=== PATIENT | male | born 1935 | race Caucasian/White ===

== ENCOUNTER 2022-10-26 15:50 | Emergency (ER) | payer OTHER ==
[~2022-10-26] VITALS: Ht 180.3 cm; Wt 86.2 kg
--- NOTE | 2022-10-26 16:00 | NUR ---
BIB RA 860 FROM HOME C/O COUGHING FOR A WEEK THAT HAS PROGRESSIVELY GOTTEN WORSE THE PAST 3 DAYS. PLACED IN BED, AAOX4, BREATHING EVEN AND UNLABORED SATURATING AT 98%RA
--- NOTE | 2022-10-26 16:25 | NUR ---
SWAB FOR COVID19 AND RAPID INFLUENZA SENT TO LAB
--- NOTE | 2022-10-26 16:26 | NUR ---
FRUIT HARVESTER MACHINE OPERATOR AT BEDSIDE
[2022-10-26] MEDS ORDERED: ACETAMINOPHEN 325 MG TABLET ONE (16:27)
[2022-10-26] MEDS ORDERED: ACETAMINOPHEN 325 MG TABLET PO ONE (16:30)
[2022-10-26] MEDS ORDERED: BENZONATATE 100 MG CAPSULE PO ONE (16:41)
--- NOTE | 2022-10-26 16:43 | NUR ---
[facility]- [phone]
[2022-10-26 16:47] LABS: BASOPHILS % (AUTO) 0.2 % (0.0-2.0); EOSINOPHILS % (AUTO) 1.7 % (0.0-6.0); HEMATOCRIT 40 % (39-51); HEMOGLOBIN 12.8 g/dL (13.5-17.5); LYMPHOCYTES # (AUTO) 0.7 K/uL (0.8-4.8); LYMPHOCYTES % (AUTO) 16.6 % (20.0-44.0); MEAN CORPUSCULAR HGB CONC 32 g/dl (31.0-36.0); MEAN CORPUSCULAR VOLUME 93 fL (80-96); MONOCYTES # (AUTO) 0.7 K/uL (0.1-1.30); MONOCYTES % (AUTO) 16.9 % (2.0-12.0); NEUTROPHILS # (AUTO) 2.6 K/uL (1.8-8.9); NEUTROPHILS % (AUTO) 64.6 % (43.0-81.0); PLATELET COUNT (AUTO) 231 K/uL (150-450); RED BLOOD CELL COUNT(AUTO) 4.24 MIL/uL (4.5-6.0)
[2022-10-26] MEDS ORDERED: BENZONATATE 100 MG CAPSULE PO PRN (17:00)
[2022-10-26 17:17] LABS: ALBUMIN 3.2 g/dL (3.4-5.0); BILIRUBIN,TOTAL 0.4 mg/dL (0.2-1.0); CALCIUM, SERUM 8.4 mg/dL (8.5-10.1); CREATININE 1.1 mg/dL (0.6-1.3); TOTAL PROTEIN, SERUM 6.6 g/dL (6.4-8.2)
[2022-10-26 18:04] LABS: BAND % (MANUAL) 3 % (0.0-5.0); EOSINOPHILS % (MANUAL) 2 % (0-4); LYMPHOCYTES % (MANUAL) 18 % (16-48); MONOCYTES % (MANUAL) 12 % (0-11.0); NEUTROPHILS % (MANUAL) 65 (42-76)
[2022-10-26] MEDS ORDERED: AMOX500T2 PO (18:17)
[2022-10-26] MEDS ORDERED: BENZ-13 PO (18:17)
--- NOTE | 2022-10-26 18:44 | NUR ---
Patient discharged to home in stable condition. Written and verbal after care instructions given. SON verbalizes understanding of instruction.
[2022-10-26 18:45] VITALS: BP 130/60
== END 2022-10-26 18:45 | disposition home or self-care (01) ==
LOC: ER 15:55
DX: J18.9 Pneumonia, unspecified organism (principal); Z20.822 Contact with and (suspected) exposure to COVID-19; D72.819 Decreased white blood cell count, unspecified; D64.9 Anemia, unspecified
CPT/HCPCS: 36415; 71045-TC; 80053-TC; 85025-TC; C9803

== ENCOUNTER 2022-11-18 19:50 | Inpatient (IN) | payer OTHER ==
[~2022-11-18] VITALS: Ht 177.8 cm; Wt 90.3 kg
[~2022-11-18 19:50] MED LIST: AMOX500T2 PO; BENZ-13 PO
--- NOTE | 2022-11-18 20:11 | NUR ---
BIBRA99 FROM HOME C/O SYNCOPAL EPISAODE @1914 -TRAUMA. - BLOOD THINNERS -LOC. PT A/OX4. TOLERATING R/A WELL WITH NO RESP DISTRESS. CONNECTED PT TO POX AND MONITOR.
--- NOTE | 2022-11-18 20:17 | NUR ---
ACCUCHECK BS 231
--- NOTE | 2022-11-18 20:17 | NUR ---
COVID ANTIGEN SWAB COLLECTED AND SENT TO LAB
--- NOTE | 2022-11-18 20:17 | NUR ---
TOOL DESIGN DRAFTER AT PT'S BEDSIDE
[2022-11-18] MEDS ORDERED: IV NS 0.9% 500 ML BAG IV ONE (20:30)
[2022-11-18 20:50] LABS: BASOPHILS % (AUTO) 0.2 % (0.0-2.0); EOSINOPHILS % (AUTO) 1.1 % (0.0-6.0); HEMATOCRIT 36 % (39-51); HEMOGLOBIN 11.7 g/dL (13.5-17.5); LYMPHOCYTES # (AUTO) 1.4 K/uL (0.8-4.8); LYMPHOCYTES % (AUTO) 19.4 % (20.0-44.0); MEAN CORPUSCULAR HGB CONC 33 g/dl (31.0-36.0); MEAN CORPUSCULAR VOLUME 93 fL (80-96); MONOCYTES # (AUTO) 0.8 K/uL (0.1-1.30); NEUTROPHILS # (AUTO) 4.9 K/uL (1.8-8.9); NEUTROPHILS % (AUTO) 68.3 % (43.0-81.0); PLATELET COUNT (AUTO) 194 K/uL (150-450); RED BLOOD CELL COUNT(AUTO) 3.86 MIL/uL (4.5-6.0); WHITE BLOOD COUNT (AUTO) 7.2 K/uL (4.3-11.0)
[2022-11-18] MEDS ORDERED: ONDANSETRON HCL/PF 4 MG/2 ML VIAL ONE (20:55)
[2022-11-18] MEDS ORDERED: MORPHINE SULFATE INJ 4 MG/ML DISP.SYRIN ONE (20:56)
[2022-11-18] MEDS ORDERED: ONDANSETRON HCL/PF 4 MG/2 ML VIAL IV ONE (21:00)
[2022-11-18] MEDS ORDERED: MORPHINE SULFATE INJ 2 MG/ML DISP.SYRIN IV ONE (21:00)
--- NOTE | 2022-11-18 21:00 | NUR ---
PT TAKEN TO CT VIA GABRIELA
[2022-11-18 21:12] LABS: ALANINE AMINOTRANSFERASE 75 U/L (12-78); ALBUMIN 2.5 g/dL (3.4-5.0); ALKALINE PHOSPHATASE 89 U/L (46-116); ASPARTATE AMINOTRANSFERASE 38 U/L (15-37); BILIRUBIN,DIRECT 0.1 mg/dL (0.0-0.2); BILIRUBIN,TOTAL 0.2 mg/dL (0.2-1.0); CARBON DIOXIDE 25 mmol/L (21-32); CHLORIDE 108 mmol/L (98-107); CREATININE 1.1 mg/dL (0.6-1.3); GLUCOSE 226 mg/dL (74-106); POTASSIUM 3.6 mmol/L (3.5-5.1); SODIUM SERUM 140 mmol/L (136-145); TOTAL PROTEIN, SERUM 5.6 g/dL (6.4-8.2); UREA NITROGEN, BLOOD 16 mg/dL (7-18)
--- NOTE | 2022-11-18 21:44 | NUR ---
PT RETURNED TO ER BED [address]
--- NOTE | 2022-11-18 23:23 | NUR ---
LACTIC ACID 3.0, AWARE
--- NOTE | 2022-11-18 23:24 | NUR ---
DR PRASHANTH HOLLAND PER DR FERRO
[2022-11-18] MEDS ORDERED: HALOPERIDOL LACTATE INJ 5 MG/ML VIAL IM ONE (23:30)
[2022-11-19] MEDS ORDERED: AZITHROMYCIN 500 MG in IV D5W 250 ML IV ONE ×2
[2022-11-19] MEDS ORDERED: hydrALAZINE HCL 10 MG TABLET PO PRN
[2022-11-19] MEDS ORDERED: DEXTROSE 50%-WATER 50 ML DISP.SYRIN IV PRN
[2022-11-19] MEDS ORDERED: IV NS 0.9% 1,000 ML BAG IV ONE
--- NOTE | 2022-11-19 00:14 | NUR ---
US TECH AT PT'S BEDSIDE
--- NOTE | 2022-11-19 01:25 | NUR ---
REPORT GIVEN TO NICANOR BullW RN FOR JAS
[2022-11-19] MEDS ORDERED: CEFTRIAXONE 1GM BAG (ER ONLY) 50 ML IV ONE ×2 (01:27)
[2022-11-19] MEDS ORDERED: HALOPERIDOL LACTATE INJ 5 MG/ML VIAL ONE (01:27)
[2022-11-19] MEDS ORDERED: AZITHROMYCIN 500 MG VIAL ONE (01:27)
--- NOTE | 2022-11-19 01:50 | NUR ---
TABLE ASSEMBLER AT PT'S BEDSIDE
--- NOTE | 2022-11-19 02:23 | NUR ---
PT TRANSFERRED TO [facility]- VIA ACLS PROTOCOL. VSS. PT TOLERATED TRANSFER WELL. ENDORSED TO CARMELO LEGGETT TO FINISH AZITHROMYCIN INFUSION.
--- NOTE | 2022-11-19 02:30 | NUR ---
RN NOTE; RECEIVED PT FROM ER IN RM 324-1 WITH GABRIELA AWAKED AOX1-2 CONFUSED,LALITHA WELL ON RM AIR SATTING 98%,NO SIGN SOB/DISTRESS NOTED,NO SIGN OF PAIN/DISCOMFORT AT THIS TIME,IV ACCESS LT WRIST 20G,PATENT AND INTACT,KEPT PT COMFORTABLE,CLEANED AT TALL TIME,SAFETY MEASURE IN PLACE,CALL LIGHT WITHIN REACH,WILL CONTINUE TO MONITOR.
--- NOTE | 2022-11-19 02:31 | NUR ---
UPDATED SELVIN (DAUGHTER) REGARDING PT'S ADMISSION CELL PHONE [phone]
[2022-11-19] MEDS: ACETAMINOPHEN 325 MG TABLET PO PRN ×2 (04:36→21:28)
[2022-11-19] MEDS: ZOLPIDEM TARTRATE 5 MG TABLET PO PRN (04:36)
[2022-11-19] MEDS: *INSULIN REGULAR(HUMULIN R)HUM 100 UNIT/ML VIAL SQ PRN (06:17)
--- NOTE | 2022-11-19 06:37 | NUR ---
RN CLOSING NOTE; PATIENT IN BED AOX1-2 CONFUSED,TRYING TO GET OUT FROM BED,AGITATED,YELLING,EPISODE OF CRYING,RESTRAIN WAS ORDER,DOC Geovanni ALFORDWAS INFORM,NO RESPONCE YET,PT REMAINED STABLE V/S WNL,NO SIGN SOB/DISTRESS NOTED,NO SIGN OF PAIN/DISCOMFORT DURING SHIFT,IV SITE L WRIST PATENT AND INTACT,SAFETY MEASURED IN PLACE,CALL LIGHT WITHIN REACH,WILL ENDORSED TO NEXT SHIFT,
--- NOTE | 2022-11-19 06:58 | NUR ---
RN NOTE; PT WAS CONFUSED,TRYING TO GET OUT FROM BED,PULLING IV,AGITATED,TEXTED DOC,Geovanni ESTRADAWTIH A NEW ORDER.HEPARIN 5000 U SQ BID,ZYPREXA 5MG PRN.
[2022-11-19 07:35] LABS: THYROID STIMULATING HORMONE 2.661 uIU/mL (0.358-3.74)
[2022-11-19] MEDS: BLOOD SUGAR DIAGNOSTIC 1 EACH STRIP VI SCH ×4 (07:36→21:49)
[2022-11-19 08:00] VITALS: BP 128/70
--- NOTE | 2022-11-19 08:00 | NUR ---
RN OPENING NOTE PATIENT IN BED AOX1-2 CONFUSED,TRYING TO GET OUT FROM BED, AGITATED AND YELLING. PT BREATHING EVEN AND NON LABORED. NO SIGN SOB/DISTRESS NOTED AT THIS TIME. NO SIGN OF PAIN/DISCOMFORT. IV ACCESS SITE L WRIST #20G, PATENT AND INTACT. BILATERAL WRIST RESTRAINT NOTED. SAFETY PRECAUTIONS IN PLACE: BED LOCKED AND IN LOW POSITION, SIDE RAILS UP X4, CALL LIGHT WITHIN REACH. WILL CONTINUE TO MONITOR.
[2022-11-19] MEDS: OLANZAPINE 5 MG TABLET PO PRN ×2 (08:09→17:15)
[2022-11-19] MEDS ORDERED: TAMS-12 PO (08:28)
[2022-11-19] MEDS ORDERED: METO25TA20 PO (08:28)
[2022-11-19] MEDS ORDERED: ESCI10TA PO (08:28)
[2022-11-19] MEDS ORDERED: INSU100I4 SQ (08:28)
[2022-11-19] MEDS ORDERED: SITA100T PO (08:28)
[2022-11-19] MEDS ORDERED: OMEP40CA21 PO (08:28)
[2022-11-19] MEDS ORDERED: LISI20TA30 PO (08:28)
[2022-11-19] MEDS ORDERED: ATOR20TA PO (08:28)
[2022-11-19] MEDS ORDERED: LEVE500T20 PO (08:28)
[2022-11-19] MEDS ORDERED: METFORMIN 500 MG TABLET PO SCH (09:00)
[2022-11-19] MEDS: ESCITALOPRAM OXALATE (10 MG) 10 MG TABLET PO SCH (09:26)
[2022-11-19] MEDS: LINAGLIPTIN 5 MG TABLET PO SCH (09:26)
[2022-11-19] MEDS: ASPIRIN EC 81 MG TABLET.DR PO SCH (09:26)
[2022-11-19] MEDS: LISINOPRIL (20MG) 20 MG TABLET PO SCH (09:27)
[2022-11-19] MEDS: LEVETIRACETAM (250 MG) 250 MG TABLET PO SCH ×2 (09:27→21:24)
[2022-11-19] MEDS: HEPARIN SODIUM, PORCINE 5000 UNITS/1 ML VIAL SQ SCH ×2 (09:29→16:36)
--- NOTE | 2022-11-19 11:50 | NUR ---
RN NOTE PT TRIED TO CLIMB OUT OF BED, SCREAMING, DISRUPTIVE, AND COMBATIVE. DR ALFORD NOTIFIED. ORDERED GEODON 20 MG, ONCE. WILL ADMINISTER. WILL CONTINUE TO MONITOR PATIENT.
[2022-11-19] MEDS ORDERED: ZIPRASIDONE MESYLATE 20 MG/VIAL VIAL IM ONE (12:00)
[2022-11-19 12:20] VITALS: BP 124/61
[2022-11-19] MEDS: INSULIN REGULAR, HUMAN 100 UNIT/ML 3 ML VIAL SQ PRN ×2 (12:23→16:51)
[2022-11-19 16:00] VITALS: BP 131/77
--- NOTE | 2022-11-19 18:50 | NUR ---
RN CLOSING NOTE PATIENT IN BED AOX1-2 CONFUSED, TRYING TO GET OUT FROM BED,AGITATED,YELLING, EPISODE OF CRYING. HIS SON BY BEDSIDE. NOTIFIED FAMILY TO BRING EYE DROP. NO SIGN SOB/DISTRESS NOTED. NO SIGN OF PAIN/DISCOMFORT DURING SHIFT,IV SITE L WRIST PATENT AND INTACT. BILATERAL SOFT WRIST RESTRAINT IN PLACE. SAFETY MEASURES IN PLACE. KEPT BED IN LOCKED AND IN LOW POSITION. SIDE RAILS UP X4. ADVISED TO USE THE CALL LIGHT WHEN IN NEED OF ASSISTANCE. REPOSITIONED PATIENT Q2H. ALL NURSING NEEDS ATTENDED. WILL ENDORSE TO INCOMING SHIFT FOR JAS.
--- NOTE | 2022-11-19 19:00 | NUR ---
RN OPENING NOTES PT IS AWAKE. A/O X 1, CONFUSED AND RESTLESS. PT IN RA, TOLERATING WELL, BREATHING EVEN AND UNLABORED @ THIS TIME. PT IV ACCESS PRESENT @ LEFT WRIST #20G SL, PATENT, INTACT AND FLUSHES WELL, WITH NO S/S OF INFILTRATION @ SITE NOTED. SAFETY MEASURES IN PLACE, BED AT ITS LOWEST AND LOCKED POSITION, SIDE RAILS X 3, BEDSIDE TABLE AND CALL LIGHT IS EASY REACH. BED ALARM IS ON. WILL CONTIINUE TO MONITOR PATIENT ACCORDINGLY.
[2022-11-19 20:00] VITALS: BP 127/68
[2022-11-19] MEDS: ATORVASTATIN 10 MG TABLET PO SCH (21:25)
[2022-11-19] MEDS: TAMSULOSIN 0.4 MG CAP.SR.24H PO SCH (21:26)
[2022-11-20] VITALS: BP 128/71
[2022-11-20] MEDS ORDERED: CEFTRIAXONE 1 G in IV D5W 50 ML IV SCH ×2
[2022-11-20] MEDS: AZITHROMYCIN 500 MG in IV D5W 250 ML IV SCH ×2 (00:37→23:05)
[2022-11-20] MEDS: OLANZAPINE 5 MG TABLET PO PRN ×4 (01:28→21:04)
[2022-11-20] MEDS: CEFTRIAXONE 1 G in IV D5W 50 ML IV SCH (01:32)
--- NOTE | 2022-11-20 03:24 | NUR ---
PATIENT REMOVED IV LINE ON HIS LEFT WRIST. INSERTED NEW IV LINE ON LEFT FOREARM #20G SALINE LOCK.
[2022-11-20] MEDS: ACETAMINOPHEN 325 MG TABLET PO PRN ×3 (03:56→22:08)
[2022-11-20 04:00] VITALS: BP 135/78
--- NOTE | 2022-11-20 06:22 | NUR ---
RN CLOSING NOTES PT IS AWAKE, A/O X 1, CONFUSED AND RESTLESS. PT IN RA, TOLERATING WELL, BREATHING EVEN AND UNLABORED @ THIS TIME. PT IV ACCESS PRESENT @ LEFT FORARM #20G SL, PATENT, INTACT AND FLUSHES WELL, WITH NO S/S OF INFILTRATION @ SITE NOTED. PT ON TELE MONITOR WITH CURRENT READING OF SINUS TACHY WITH PVC AND BBB , HR 116. MEDICATION ADMINISTERED PER MD'S ORDER. SAFETY MEASURES IN PLACE, BED AT ITS LOWEST AND LOCKED POSITION, SIDE RAILS X 3, BEDSIDE TABLE AND CALL LIGHT IS EASY REACH. BED ALARM IS ON. WILL CONTIINUE TO MONITOR PATIENT ACCORDINGLY.
[2022-11-20] MEDS: PANTOPRAZOLE 40 MG TABLET.DR PO SCH (06:43)
[2022-11-20] MEDS: BLOOD SUGAR DIAGNOSTIC 1 EACH STRIP VI SCH ×4 (06:44→22:19)
--- NOTE | 2022-11-20 07:25 | NUR ---
SENIOR MARKET INTELLIGENCE CONSULTANT OPENING NOTES PT IS AWAKE. A/O X 1, CONFUSED AND RESTLESS. ON ROOM AIR TOLERATING WELL, BREATHING EVEN AND UNLABORED @ THIS TIME. PT IV ACCESS PRESENT @ LEFT UPPER ARM #20G SL, PATENT, INTACT AND FLUSHES WELL, WITH NO S/S OF INFILTRATION @ SITE NOTED. SAFETY MEASURES IN PLACE, BED AT ITS LOWEST AND LOCKED POSITION, SIDE RAILS X 3, BEDSIDE TABLE AND CALL LIGHT IS EASY REACH. BED ALARM IS ON. WILL CONTINUE TO MONITOR PATIENT ACCORDINGLY.
[2022-11-20] MEDS: ESCITALOPRAM OXALATE (10 MG) 10 MG TABLET PO SCH (08:29)
[2022-11-20] MEDS: ASPIRIN EC 81 MG TABLET.DR PO SCH (08:29)
[2022-11-20] MEDS: LINAGLIPTIN 5 MG TABLET PO SCH (08:29)
[2022-11-20] MEDS: LEVETIRACETAM (250 MG) 250 MG TABLET PO SCH ×2 (08:29→21:05)
[2022-11-20] MEDS: QUETIAPINE FUMARATE 25 MG TABLET PO SCH ×2 (08:30→17:34)
[2022-11-20] MEDS: LISINOPRIL (20MG) 20 MG TABLET PO SCH ×2 (08:36→08:47)
[2022-11-20] MEDS: HEPARIN SODIUM, PORCINE 5000 UNITS/1 ML VIAL SQ SCH ×2 (08:37→17:35)
--- NOTE | 2022-11-20 10:45 | NUR ---
WOUND CARE CONSULT: PT PRESENTS WITH LARGE AREA OF DISCOLORATION TO RT HIP, RT LATERAL KNEE AND SKIN TEAR TO RT ELBOW, ALL PRESENT ON ADMISSION. RECOMMENDATIONS MADE FOR SKIN PROTECTION AND WOUND CARE. DISCUSSED WITH NURSING STAFF. DEFER TO PMD FOR HIP DISCOLORATION. MD IN AGREEMENT WITH PLAN OF CARE.
[2022-11-20] MEDS ORDERED: Z GUARD REMEDY 4 OZ OINT TP PRN (11:00)
[2022-11-20] MEDS: Z GUARD REMEDY 4 OZ OINT TP SCH (12:56)
[2022-11-20] MEDS: INSULIN REGULAR, HUMAN 100 UNIT/ML 3 ML VIAL SQ PRN ×2 (13:44→18:04)
--- NOTE | 2022-11-20 18:32 | NUR ---
STACKER CLOSING NOTES PT IN BED AWAKE. A/O X 1, CONFUSED AND RESTLESS. ON ROOM AIR TOLERATING WELL, BREATHING EVEN AND UNLABORED @ THIS TIME. PT IV ACCESS PRESENT @ LEFT UPPER ARM #20G SL, PATENT, INTACT AND FLUSHES WELL, WITH NO S/S OF INFILTRATION @ SITE NOTED. ALL DUE MEDS ORDERED , SEEN BY DR ALFORD WITH NEW ORDER OF SEROQUEL FOR AGITATION , TYLENOL GIVEN ORDERED FOR PAIN AND WITH HELP , STILL ON ACUTE MEDICAL RESTRAINT FOR DUE TO RISK FOR INJURY , SAFETY MEASURES IN PLACE, BED AT ITS LOWEST AND LOCKED POSITION, SIDE RAILS X 3, BEDSIDE TABLE AND CALL LIGHT IS EASY REACH. BED ALARM IS ON. ENDORSED TO NEXT SHIFT .
--- NOTE | 2022-11-20 19:15 | NUR ---
RN NOTES: RECEIVED AWAKE ON BED, ON BILATERAL SOFT RESTRAINT, CIRCULATION MONITORED, A/OX1 TO SELF ONLY, CONFUSED AND FORGETFUL,ON TELE MONITOR ST WITH PVC WITH BBB RATE-110, UNABLE TO STAY IN 1 POSITION, HE WANTS TO GET UP, MULTIPLE SKIN TEAR AND DISCOLORATION NOTED ON BUE AND BLE, RAMIRO G#20 PATENT, ON ZYPREXA AND TYLENOL PRN, FOR POSSIBLE DISCHARGE, AWAITING FOR PLACEMENT,ABLE TO TAKE PILLS WHOLE WITH APPLESAUCE.ON ROOM AIR, WITH ON AND OFF COUGH, ON IV/ATB.SAFETY PRECAUTION OBSERVED, HE HAS A HUGE DISCOLORATION BLUISH/PURPLISH ON THE RIGHT HIP AREA, EXTENDING TO THE RIGHT BUTTOCKS AREA.ON CLOSE WATCH.
[2022-11-20 20:00] VITALS: BP 131/73
[2022-11-20] MEDS: ATORVASTATIN 10 MG TABLET PO SCH (21:05)
--- NOTE | 2022-11-20 21:05 | NUR ---
RN NOTES: SCREAMING AND SHOUTING, CRYING AND RESTLESS IN HIS BED, REPOSITIONED WITH HOTEL AND DINING ROOM CASHIER SEVERAL TIMES, ON SOFT RESTRAINT, CHECK CIRCULATION ON BOTH HANDS, DUE NOW FOR PRN ZYPREXA, GIVEN.
[2022-11-20] MEDS: TAMSULOSIN 0.4 MG CAP.SR.24H PO SCH (21:15)
--- NOTE | 2022-11-20 22:08 | NUR ---
RN NOTES: RESTLESS, GRIMACING DURING REPOSITIONING, GIVEN TYLENOL PRN FOR PAIN.
--- NOTE | 2022-11-20 22:19 | NUR ---
RN NOTES: BLOOD SUGAR CHECK 105, INSULIN PER SLIDING SCALE.ILL CONTINUE TO MONITOR FOR ANY SIGN OF HYPER/HYPOGLYCEMIA.
[2022-11-20] MEDS: *INSULIN REGULAR(HUMULIN R)HUM 100 UNIT/ML VIAL SQ PRN (22:20)
--- NOTE | 2022-11-20 22:51 | NUR ---
RN NOTES: RESTLESS IN BED, CALLING CHILDREN TO TAKE HIM HOME, CRYING WITHOUT TEARS, TRYING TO GET UP FROM THE BED, ON CLOSE VISUAL CHECK AT FREQUENT INTERVALS, NOTIFIED CN, TYLENOL AND ZYPREXA ALREADY GIVEN, HE IS STILL SCREAMING AND MAKING LOUD SOUNDS, HE LOOKS TIRED BUT HE CANNOT SLEEP, PRN FOR SLEEP GIVEN, CN NOTIFIED.
[2022-11-20] MEDS: ZOLPIDEM TARTRATE 5 MG TABLET PO PRN (22:55)
--- NOTE | 2022-11-20 23:20 | NUR ---
RN NOTES: STILL AWAKE CRYING, "SELVIN, SELVIN" THEN HE SAID "I WANT TO SLEEP", RN EXPLAINED TO OH HE JUST TOOK HIS SLEEPING PILL, HE ASKED "WHAT TIME", RN EXPLAINED AWHILE AGO AND SHE KEEP ON TELLING 'SLEEP, SLEEP', THEN AFTER SOMETIME HE LOOK FOR SELVIN AGAIN, SAYING HE WANTS TO GO HOME.NON PHARMACOLOGIC INTERVENTION RENDERED, GIVEN SNACK, WARM BLANKET, GIVEN FLUIDS TOLERATED, ASPIRATION PRECAUTION OBSERVED.
[2022-11-21] VITALS: BP 154/86
--- NOTE | 2022-11-21 | NUR ---
RN NOTES: STILL AWAKE, SLEEPY BUT HE IS TRYING TO GET UP IN BETWEEN, MONITORED AND KEPT ON CLOSE WATCH.
[2022-11-21] MEDS: CEFTRIAXONE 1 G in IV D5W 50 ML IV SCH (01:12)
--- NOTE | 2022-11-21 02:39 | NUR ---
RN NOTES: -ABLE TO SLEEP AND REST AT SHORT INTERVALS, ST WITH PVC WITH BBB RATE -87 TO 100'S, IRREGULAR WHEN HE WAKE UP IN BETWEEN.
[2022-11-21 04:00] VITALS: BP 158/93
[2022-11-21 05:47] LABS: BASOPHILS % (AUTO) 0.3 % (0.0-2.0); EOSINOPHILS % (AUTO) 3.6 % (0.0-6.0); HEMATOCRIT 37 % (39-51); HEMOGLOBIN 11.8 g/dL (13.5-17.5); LYMPHOCYTES # (AUTO) 1.3 K/uL (0.8-4.8); LYMPHOCYTES % (AUTO) 16.7 % (20.0-44.0); MEAN CORPUSCULAR HGB CONC 32 g/dl (31.0-36.0); MEAN CORPUSCULAR VOLUME 94 fL (80-96); MONOCYTES % (AUTO) 13.1 % (2.0-12.0); NEUTROPHILS # (AUTO) 5.1 K/uL (1.8-8.9); NEUTROPHILS % (AUTO) 66.3 % (43.0-81.0); PLATELET COUNT (AUTO) 213 K/uL (150-450); WHITE BLOOD COUNT (AUTO) 7.6 K/uL (4.3-11.0)
[2022-11-21] MEDS: BLOOD SUGAR DIAGNOSTIC 1 EACH STRIP VI SCH ×4 (06:33→22:28)
[2022-11-21 07:00] LABS: ALBUMIN 2.8 g/dL (3.4-5.0); BILIRUBIN,TOTAL 0.5 mg/dL (0.2-1.0); CALCIUM, SERUM 8.8 mg/dL (8.5-10.1); POTASSIUM 3.7 mmol/L (3.5-5.1); TOTAL PROTEIN, SERUM 6.3 g/dL (6.4-8.2)
--- NOTE | 2022-11-21 07:34 | NUR ---
RN NOTES: AWAKE IN BETWEEN, HE REMOVE ALL HIS CLOTHING, ELECTRICIAN ASSISTANT AND RN REPOSITIONED HIM, OFF LOADING DONE, HE GO BACK TO SLEEP, NO SOB WITH ON AND OFF COUGH NOTED, ASPIRATION PRECAUTION OBSERVED, KEPT ON CLOSE VISUAL CHECK, HIGH RISK FOR FALL, WHILE ASLEEP, LOSSEN HIS SOFT RESTRAIN.F/U LAB RESULT THIS MORNING, ENDORSED FOR CONTINUITY OF CARE.
--- NOTE | 2022-11-21 07:45 | NUR ---
ACOUSTICAL MATERIAL WORKER OPENING NOTES RECEIVED PATIENT ON BED ASLEEP . ON ROOM AIR TOLERATING WELL, NO SOB OR DISTRESS NOTED . PT IV ACCESS PRESENT @ LEFT UPPER ARM #20G SL, PATENT, INTACT AND FLUSHES WELL, STILL ON BILATERAL SOFT RESTRAINTS DUE TO CLIMBING OUT OF BED . SAFETY MEASURES IN PLACE, BED AT ITS LOWEST AND LOCKED POSITION, SIDE RAILS X 3, BEDSIDE TABLE AND CALL LIGHT IS EASY REACH. BED ALARM IS ON. WILL CONTINUE TO MONITOR PATIENT ACCORDINGLY.
[2022-11-21] MEDS: PANTOPRAZOLE 40 MG TABLET.DR PO SCH (08:24)
[2022-11-21] MEDS: LINAGLIPTIN 5 MG TABLET PO SCH (09:28)
[2022-11-21] MEDS: QUETIAPINE FUMARATE 25 MG TABLET PO SCH ×2 (09:28→17:42)
[2022-11-21] MEDS: ESCITALOPRAM OXALATE (10 MG) 10 MG TABLET PO SCH (09:28)
[2022-11-21] MEDS: LEVETIRACETAM (250 MG) 250 MG TABLET PO SCH ×2 (09:28→21:58)
[2022-11-21] MEDS: ASPIRIN EC 81 MG TABLET.DR PO SCH (09:30)
[2022-11-21] MEDS: LISINOPRIL (20MG) 20 MG TABLET PO SCH (09:30)
[2022-11-21] MEDS: Z GUARD REMEDY 4 OZ OINT TP SCH (09:30)
[2022-11-21] MEDS: INSULIN REGULAR, HUMAN 100 UNIT/ML 3 ML VIAL SQ PRN ×2 (12:11→17:41)
--- NOTE | 2022-11-21 18:43 | NUR ---
MS RN CLOSING NOTES PATIENT ON BED AWAKE , A/O X 1-2 , VERBALLY RESPONSIVE WITH CONFUSION BUT NO BEHAVIOR OF AGITATION NOTED . ON ROOM AIR TOLERATING WELL, NO SOB OR DISTRESS NOTED . PT IV ACCESS PRESENT @ LEFT UPPER ARM #20G SL , ALL DUE MEDS GIVEN ORDERED , RESTRAINTS WAS D/C AND PATIENT WITH NO BEHAVIOR OF CLIMBING OUT OF BED , FOR D/C PLANNING TO SNF AT [facility] , SAFETY MEASURES IN PLACE, BED AT ITS LOWEST AND LOCKED POSITION, SIDE RAILS X 3, BEDSIDE TABLE AND CALL LIGHT IS EASY REACH. BED ALARM IS ON. ENDORSED TO NEXT SHIFT .
--- NOTE | 2022-11-21 19:45 | NUR ---
MS RN OPENING NOTES RECEIVED PATIENT IN BED SLEEPING. EASILY AWAKEN BY VERBAL AND TACTILE STIMULI. ON ROOM AIR TOLERATING WELL. NO SOB OR DISTRESS NOTED . PT IV ACCESS PRESENT @ LEFT UPPER ARM #20G SL, PATENT, INTACT AND FLUSHES WELL. SAFETY MEASURES IN PLACE, BED AT ITS LOWEST AND LOCKED POSITION, SIDE RAILS X 3, BEDSIDE TABLE AND CALL LIGHT IS EASY REACH. BED ALARM IS ON. WILL CONTINUE TO MONITOR PATIENT.
[2022-11-21 20:00] VITALS: BP 124/52
[2022-11-21] MEDS: ATORVASTATIN 10 MG TABLET PO SCH (21:58)
[2022-11-21] MEDS: TAMSULOSIN 0.4 MG CAP.SR.24H PO SCH (21:58)
[2022-11-21] MEDS: *INSULIN REGULAR(HUMULIN R)HUM 100 UNIT/ML VIAL SQ PRN (22:53)
[2022-11-22] MEDS: AZITHROMYCIN 500 MG in IV D5W 250 ML IV SCH (00:06)
[2022-11-22] MEDS: ZOLPIDEM TARTRATE 5 MG TABLET PO PRN (01:07)
--- NOTE | 2022-11-22 01:11 | NUR ---
MS RN NOTES PATIENT VERBALIZED THAT HE CAN'T SLEEP. AMBIEN 5MG PRN GIVEN. WILL CONTINUE TO MONITOR PATIENT.
[2022-11-22] MEDS: ACETAMINOPHEN 325 MG TABLET PO PRN (01:33)
--- NOTE | 2022-11-22 01:35 | NUR ---
MS RN NOTES PATIENT VERBALIZED PAIN ON HIS LEFT ARM. PAIN LEVEL IS 6/10. TYLENOL 650MG GIVEN PRN. WILL CONTINUE TO MONITOR PATIENT.
[2022-11-22] MEDS: OLANZAPINE 5 MG TABLET PO PRN (02:02)
--- NOTE | 2022-11-22 02:10 | NUR ---
MS RN NOTES PATIENT IS SO AGITATED AND ASKING TO GET OUT OFF THE BED. AMBIEN IS NOT EFFECTIVE. ZYPREXA GIVEN PRN. WILL CONTINUE TO MONITOR.
[2022-11-22] MEDS ORDERED: LACTULOSE 10 G/15 ML UDC (PYXIS) PO PRN (07:00)
--- NOTE | 2022-11-22 07:05 | NUR ---
MS RN CLOSING NOTES PATIENT IN BED SLEEPING. EASILY AWAKEN BY VERBAL AND TACTILE STIMULI. ON ROOM AIR TOLERATING WELL. NO SOB OR DISTRESS NOTED. ALL SCHEDULED MEDICATIONS AND IV GIVEN. PAIN MEDICATIONS GIVEN PRN. IV ACCESS PRESENT @ LEFT UPPER ARM #20G SL, PATENT, INTACT AND FLUSHES WELL. SAFETY MEASURES MAINTAINED. BED IN LOWEST AND LOCKED POSITION, SIDE RAILS X 3, BEDSIDE TABLE AND CALL LIGHT IS EASY REACH. BED ALARM IS ON. WILL ENDORSE TO THE NEXT SHIFT.
[2022-11-22] MEDS: PANTOPRAZOLE 40 MG TABLET.DR PO SCH (07:30)
--- NOTE | 2022-11-22 07:35 | NUR ---
MS RN OPENING NOTES: PATIENT IN BED ASLEEP, EASILY ROUSED, A/O X 1-2; VERBALLY RESPONSIVE WITH CONFUSION BUT NO BEHAVIOR OF AGITATION NOTED. ON ROOM AIR TOLERATING WELL, NO SOB OR DISTRESS NOTED . PT IV ACCESS PRESENT @ LEFT UPPER ARM #20G SL. RESTRAINTS ORDERED DC 11/21/2022 @ 1843; PT IS CALM NO AGGRESSIVE BEHAVIOR , OR CLIMBING OUT OF BED NOTED. PT IS NOT PULLING IV LINE. SAFETY MEASURES IN PLACE, BED AT ITS LOWEST AND LOCKED POSITION, SIDE RAILS X 3, BEDSIDE TABLE AND CALL LIGHT WITHIN EASY REACH; BED ALARM IS ON. WILL CONT WITH PLAN OF CARE DURING SHIFT.
[2022-11-22] MEDS: BLOOD SUGAR DIAGNOSTIC 1 EACH STRIP VI SCH ×4 (08:41→22:21)
[2022-11-22] MEDS: QUETIAPINE FUMARATE 25 MG TABLET PO SCH ×2 (09:21→17:00)
[2022-11-22] MEDS: LEVETIRACETAM (250 MG) 250 MG TABLET PO SCH ×2 (09:21→22:06)
[2022-11-22] MEDS: ESCITALOPRAM OXALATE (10 MG) 10 MG TABLET PO SCH (09:21)
[2022-11-22] MEDS: LINAGLIPTIN 5 MG TABLET PO SCH (09:21)
[2022-11-22] MEDS: ASPIRIN EC 81 MG TABLET.DR PO SCH (09:21)
[2022-11-22] MEDS: LISINOPRIL (20MG) 20 MG TABLET PO SCH (09:22)
[2022-11-22] MEDS: Z GUARD REMEDY 4 OZ OINT TP SCH (10:04)
[2022-11-22 10:49] VITALS: BP 162/92
[2022-11-22] MEDS: INSULIN REGULAR, HUMAN 100 UNIT/ML 3 ML VIAL SQ PRN (13:07)
--- NOTE | 2022-11-22 14:08 | NUR ---
MS RN NOTES; 1345- PT TRANSPORTED TO CT SCAN VIA GURNEY, PT VITALS STABLE, NO S/S OF SOB OR ACUTE DISTRESS AT THE MOMENT. PT HAS BEEN OFF RESTRAINTS DURING SHIFT, NO EPISODES OF AGITATION AND RESTLESSNESS. 1408 PT IS BACK IN BED, RESTING COMFORTABLE, WILL CONT TO MONITOR.
--- NOTE | 2022-11-22 15:00 | NUR ---
RN NOTES: RN FAXED RN NOTES REGARDING RESTRAINT DC ORDER TO [facility] FAX # [phone], CONFIRMATION IN CHART
[2022-11-22 16:21] VITALS: BP 105/45
--- NOTE | 2022-11-22 17:00 | NUR ---
MS RN NOTES: HELD SEROQUEL, PT IS TOO SLEEPY, WILL CONT TO MONITOR.
--- NOTE | 2022-11-22 19:00 | NUR ---
RN OPENING NOTES PT IS ASLEEP, A/O X 1-2, CONFUSED. PT ON RA TOLERATING WELL, BREATHING EVEN AND UNLABORED AT THIS TIME. PT IS W/ IV ACCESS RAMIRO #20G SALINE LOCK, PATENT, INTACT AND FLUSHES WELL W/ NO S/S OF INFILTRATION. SAFETY MEASURES IS IN PLACE. BED IN ITS LOWEST AND LOCKED POSITION. SIDE RAILS UP X 2 . BEDSIDE TABLE AND CALL LIGHT IS EASY REACH. WILL CONTINUE TO MONITOR PATIENT ACCORDINGLY.
--- NOTE | 2022-11-22 19:47 | NUR ---
MS RN CLOSING NOTES; PATIENT IN BED ASLEEP, EASILY ROUSED, A/O X 1-2; VERBALLY RESPONSIVE WITH CONFUSION BUT NO BEHAVIOR OF AGITATION NOTED. ON ROOM AIR TOLERATING WELL, NO SOB OR DISTRESS NOTED . PT IV ACCESS PRESENT @ LEFT UPPER ARM #20G SL. RESTRAINTS ORDERED DC 11/21/2022 @ 1843; PT IS CALM NO AGGRESSIVE BEHAVIOR , OR CLIMBING OUT OF BED NOTED. PT IS NOT PULLING IV LINE. KEPT PT CLEAN, DRY AND COMFORTABLE, SAFETY MEASURES IN PLACE. BED AT ITS LOWEST AND LOCKED POSITION, SIDE RAILS X 3, BEDSIDE TABLE AND CALL LIGHT WITHIN EASY REACH. ENDORSED TO PM SHIFT.
[2022-11-22 20:00] VITALS: BP 134/78
[2022-11-22] MEDS: ATORVASTATIN 10 MG TABLET PO SCH (22:06)
[2022-11-22] MEDS: TAMSULOSIN 0.4 MG CAP.SR.24H PO SCH (22:07)
[2022-11-22] MEDS: *INSULIN REGULAR(HUMULIN R)HUM 100 UNIT/ML VIAL SQ PRN (22:22)
--- NOTE | 2022-11-22 22:22 | NUR ---
NON ADMINISTERED INSULIN REGULAR (HUMULIN R) TO PATIENT DUE TO GLUCOSE OF 120.
[2022-11-23] MEDS: AZITHROMYCIN 500 MG in IV D5W 250 ML IV SCH (00:44)
[2022-11-23] MEDS: PANTOPRAZOLE 40 MG TABLET.DR PO SCH (06:46)
--- NOTE | 2022-11-23 06:56 | NUR ---
RN CLOSING NOTES PT IS ASLEEP, A/O X 1-2, CONFUSEDBUT RESPONSIVE AND FOLLOWS VERBAL COMMAND. PT ON RA TOLERATING WELL, BREATHING EVEN AND UNLABORED AT THIS TIME. PT IS W/ IV ACCESS RAMIRO #20G SALINE LOCK, PATENT, INTACT AND FLUSHES WELL W/ NO S/S OF INFILTRATION. MEDICATION ADMINISTERED PER MD'S ORDER. SAFETY MEASURES IS IN PLACE. BED IN ITS LOWEST AND LOCKED POSITION. SIDE RAILS UP X 2 . BEDSIDE TABLE AND CALL LIGHT IS EASY REACH. WILL ENDORSE TO THE NEXT SHIFT FOR CONTINUITY OF CARE.
--- NOTE | 2022-11-23 07:10 | NUR ---
RN OPENING NOTES PT IS ASLEEP, A/O X 1-2, CONFUSED. PT ON RA TOLERATING WELL, BREATHING EVEN AND UNLABORED, W/ IV ACCESS AT RAMIRO #20G SALINE LOCK, C/D/I. SAFETY MEASURES IS IN PLACE. BED IN ITS LOWEST AND LOCKED POSITION. SIDE RAILS UP X 2 . BEDSIDE TABLE AND CALL LIGHT WITHIN REACH. WILL CONTINUE TO MONITOR THE PATIENT.
[2022-11-23] MEDS: BLOOD SUGAR DIAGNOSTIC 1 EACH STRIP VI SCH ×3 (07:49→17:30)
[2022-11-23] MEDS ORDERED: QUET50TA PO (08:57)
[2022-11-23] MEDS: Z GUARD REMEDY 4 OZ OINT TP SCH (09:00)
[2022-11-23 09:09] VITALS: BP 125/80
[2022-11-23] MEDS: LISINOPRIL (20MG) 20 MG TABLET PO SCH (10:21)
[2022-11-23] MEDS: LINAGLIPTIN 5 MG TABLET PO SCH (10:22)
[2022-11-23] MEDS: QUETIAPINE FUMARATE 25 MG TABLET PO SCH ×2 (10:22→17:00)
[2022-11-23] MEDS: ESCITALOPRAM OXALATE (10 MG) 10 MG TABLET PO SCH (10:23)
[2022-11-23] MEDS: LEVETIRACETAM (250 MG) 250 MG TABLET PO SCH (10:23)
[2022-11-23] MEDS: ASPIRIN EC 81 MG TABLET.DR PO SCH (10:24)
--- NOTE | 2022-11-23 16:35 | NUR ---
MS DIRECTOR SUMMER SESSIONS NOTES; DISCHARGE PATIENT TO [facility] [place] VIA AMBULANCE MEDIA PROMOTER. PATIENT'S UNABLE TO SIGN, A/O X1-2 WITH SIGNS OF CONFUSION. NO SOB OR DISTRESS NOTED. VERIFIED WITH CO-RN SIGNATURE ON DISCHARGE NOTES AND PERSONAL BELONGINGS. PT IV ACCESS REMOVED. KEPT PT CLEAN, DRY AND COMFORTABLE, SAFETY MEASURES IN PLACE ENDORSED TO EMT. CHARGE NURSE AWARE OF THE DISCHARGE.
[2022-11-23 17:07] VITALS: BP 119/75
== END 2022-11-23 18:00 | DRG 312 ==
LOC: ER 19:54 → TELE 23:39 → MED 11-21 16:24
PROVIDERS: ADMIT Internal Medicine; ATTEND Internal Medicine
DX: I95.1 Orthostatic hypotension (principal); F03.911 Unspecified dementia, unspecified severity, with agitation; G40.909 Epilepsy, unspecified, not intractable, without status epilepticus; E11.9 Type 2 diabetes mellitus without complications; Z20.822 Contact with and (suspected) exposure to COVID-19; I10 Essential (primary) hypertension; E78.00 Pure hypercholesterolemia, unspecified; E78.5 Hyperlipidemia, unspecified; K59.00 Constipation, unspecified; Z79.899 Other long term (current) drug therapy; N40.0 Benign prostatic hyperplasia without lower urinary tract symptoms; Z79.84 Long term (current) use of oral hypoglycemic drugs; S70.01XA Contusion of right hip, initial encounter; W19.XXXA Unspecified fall, initial encounter; Y92.9 Unspecified place or not applicable; K57.30 Diverticulosis of large intestine without perforation or abscess without bleeding
CPT/HCPCS: 36415; 70450-TC; 71045-TC; 73502; 80048-TC; 80053-TC; 80076-TC; 82140-TC; 82962-TC; 83605-TC; 84443-TC; 84484-TC; 85025-TC; 87040-TC; 87081-TC; 93307-TC; 93880-TC; 97112-TC; 97116-TC; 97530-TC; A4223; A6253; C9803; G0378; J0456; J0696; J1630; J1644; J1815; J2270; J2405; J3486; J7030; J7060